=== PATIENT | female | born 1960 | race Caucasian/White ===

== ENCOUNTER 2016-08-31 00:53 | Inpatient (IN) | payer OTHER ==
[~2016-08-31] VITALS: Ht 157.5 cm; Wt 60.8 kg
[2016-08-31 12:28] LABS: BUN/CREATININE RATIO 60 (0-10)
[2016-08-31 12:38] LABS: HEMOGLOBIN 9.6 gm/dl (12.3-15.3); RED BLOOD COUNT 3.3 M/UL (4.00-5.10)
[2016-08-31 12:41] LABS: WHITE BLOOD COUNT 0.4 K/UL (4.5-11.0)
[2016-08-31] MEDS ORDERED: ZYRTEC10 M3 PO (13:04)
[2016-08-31] MEDS ORDERED: HYDROCHLOROTHIA25 MG PO (13:05)
[2016-08-31] MEDS ORDERED: GLUCOPHAGE 500500 MG PO (13:05)
[2016-08-31] MEDS ORDERED: NORVASC 5 MG TAB5 MG PO (13:07)
[2016-08-31] MEDS ORDERED: VOLTAREN EC 7575 MG PO (13:09)
[2016-08-31] MEDS ORDERED: METOPROLOL TAR100 MG PO (13:14)
[2016-08-31] MEDS ORDERED: VENTOLIN HFA 66.7 GM INH (13:14)
[2016-08-31] MEDS ORDERED: SIMVASTATIN40 MG PO (13:15)
[2016-08-31] MEDS ORDERED: VITAMIN D250000 UNIT PO (13:15)
[2016-08-31] MEDS ORDERED: HYDROXYZINE PAM25 MG PO (13:16)
[2016-08-31] MEDS ORDERED: LEVETIRACETAM500 MG PO (13:18)
[2016-08-31] MEDS ORDERED: FAMOTIDINE40 MG PO (13:19)
[2016-08-31] MEDS ORDERED: NEURONTIN 300300 MG PO (13:19)
[2016-08-31] MEDS ORDERED: KLOR-CON M2020 MEQ PO (13:25)
[2016-08-31] MEDS ORDERED: FOLIC ACID 1 MG1 MG PO (13:25)
[2016-08-31] MEDS ORDERED: LASIX TAB 20 MG20 MG PO (13:27)
[2016-08-31] MEDS ORDERED: KLONOPIN TAB 00.5 MG PO (13:28)
[2016-08-31] MEDS ORDERED: DEXAMETHASONE4 MG PO (13:31)
[2016-09-01 04:55] LABS: HEMOGLOBIN 8.7 gm/dl (12.3-15.3)
[2016-09-01 05:01] LABS: WHITE BLOOD COUNT 0.6 K/UL (4.5-11.0)
[2016-09-01 05:05] LABS: BUN/CREATININE RATIO 45 (0-10)
--- NOTE | 2016-09-01 05:30 | NUR ---
0500 lab called to report wbc of 0.6 up form yesterday at 0.4, called to pt remains in reverse isolation.
[2016-09-02 04:29] LABS: HEMOGLOBIN 8.8 gm/dl (12.3-15.3); RED BLOOD COUNT 3.02 M/UL (4.00-5.10)
[2016-09-02 04:31] LABS: WHITE BLOOD COUNT 0.6 K/UL (4.5-11.0)
[2016-09-02 04:32] LABS: BUN/CREATININE RATIO 30 (0-10)
[2016-09-03 05:36] LABS: HEMOGLOBIN 8.9 gm/dl (12.3-15.3); RED BLOOD COUNT 3.05 M/UL (4.00-5.10)
[2016-09-03 05:37] LABS: WHITE BLOOD COUNT 1.7 K/UL (4.5-11.0)
[2016-09-03 05:53] LABS: BUN/CREATININE RATIO 20 (0-10)
[2016-09-04 06:41] LABS: BUN/CREATININE RATIO 50 (0-10)
[2016-09-04 06:47] LABS: HEMOGLOBIN 9.6 gm/dl (12.3-15.3); RED BLOOD COUNT 3.29 M/UL (4.00-5.10)
[2016-09-04] MEDS ORDERED: NORCO 5-325 TA1 EACH PO (11:51)
[2016-09-04] MEDS ORDERED: ZOFRAN4 MG PO (11:52)
[2016-09-04] MEDS ORDERED: SENOKOT-S TABL1 EACH PO (11:55)
[2016-09-04] MEDS ORDERED: BOOST237 ML PO (12:14)
== END 2016-09-04 17:24 | DRG 438 ==
LOC: M/S 07:40
PROVIDERS: Internal Medicine; Internal Medicine Infectious Disease; Physician Assistant Medical; ADMIT Internal Medicine
DX: K85.90 Acute pancreatitis without necrosis or infection, unspecified (principal); D61.810 Antineoplastic chemotherapy induced pancytopenia; C34.11 Malignant neoplasm of upper lobe, right bronchus or lung; C78.89 Secondary malignant neoplasm of other digestive organs; C77.1 Secondary and unspecified malignant neoplasm of intrathoracic lymph nodes; C77.2 Secondary and unspecified malignant neoplasm of intra-abdominal lymph nodes; C78.7 Secondary malignant neoplasm of liver and intrahepatic bile duct; C79.72 Secondary malignant neoplasm of left adrenal gland; C79.71 Secondary malignant neoplasm of right adrenal gland; C79.31 Secondary malignant neoplasm of brain; C79.89 Secondary malignant neoplasm of other specified sites; J90 Pleural effusion, not elsewhere classified; K56.7 Ileus, unspecified; T45.1X5A Adverse effect of antineoplastic and immunosuppressive drugs, initial encounter; R09.02 Hypoxemia; E87.6 Hypokalemia; E11.9 Type 2 diabetes mellitus without complications; I10 Essential (primary) hypertension; E78.5 Hyperlipidemia, unspecified; E83.42 Hypomagnesemia; R00.0 Tachycardia, unspecified; Z66 Do not resuscitate; Z86.73 Personal history of transient ischemic attack (TIA), and cerebral infarction without residual deficits; Z87.891 Personal history of nicotine dependence; Z92.3 Personal history of irradiation; Z79.84 Long term (current) use of oral hypoglycemic drugs; Z99.81 Dependence on supplemental oxygen; Z79.899 Other long term (current) drug therapy; Z88.0 Allergy status to penicillin; Z90.710 Acquired absence of both cervix and uterus; Z98.890 Other specified postprocedural states; Z80.9 Family history of malignant neoplasm, unspecified; Z82.49 Family history of ischemic heart disease and other diseases of the circulatory system
CPT/HCPCS: 36415; 71010; 80048; 80053; 81001; 82150; 82962; 83690; 83735; 84132; 85025; 85027; 94640; 94664; G0379; J1956; J2505; J3480; J7030